=== PATIENT | male | born 1995 | race Caucasian/White ===

== ENCOUNTER 2018-01-13 07:14 | Emergency (ER) | END 2018-01-13 08:30 | disposition home or self-care (01) ==

== ENCOUNTER 2018-01-16 18:27 | Emergency (ER) | END 2018-01-16 21:48 | disposition left against medical advice (07) ==

== ENCOUNTER 2018-01-22 22:58 | Emergency (ER) | END 2018-01-23 01:48 | disposition home or self-care (01) ==